=== PATIENT | male | born 1995 | race Hispanic/Latino ===

== ENCOUNTER 2022-05-27 06:29 | Day surgery (SDC) | payer BC ==
[2022-05-26 11:05] VITALS: BMI 26.6
[2022-05-27] MEDS ORDERED: Oxymetazoline HCl 0.05% (30 ML BOT) ONE ×2 (06:45→07:09)
[2022-05-27] MEDS ORDERED: Bupivacaine/Epinephrine 0.25% 30 ML VIAL ONE (06:45)
[2022-05-27] MEDS ORDERED: Bacitracin Zinc Ointment 30 gm TUBE ONE (06:45)
[2022-05-27] MEDS ORDERED: fentaNYL Citrate/PF 100 MCG/2 ML SYRINGE ONE (06:49)
[2022-05-27] MEDS ORDERED: Dexmedetomidine 200 MCG/2 ML VIAL ONE (06:49)
[2022-05-27] MEDS ORDERED: CEFAZOLIN 2 GM VIAL ONE (07:17)
[2022-05-27] MEDS ORDERED: Sodium Chloride 0.9% 100 ML ONE (07:17)
[2022-05-27] MEDS ORDERED: EPINEPHrine 1 MG/ML AMP ONE (07:27)
[2022-05-27] MEDS ORDERED: Lidocaine 1% (PF) 30 ML VIAL ONE (07:27)
[2022-05-27] MEDS ORDERED: Ondansetron PF 4 MG/2 ML Vial ONE (07:33)
[2022-05-27] MEDS ORDERED: Lidocaine 1% MPF 2 ML VIAL ONE (07:33)
[2022-05-27] MEDS ORDERED: NEOSTIGMINE 3 MG/3 ML SYR 3 MG/3 ML SYRINGE ONE (07:33)
[2022-05-27] MEDS ORDERED: Rocuronium Bromide 10 MG/ML (10ML VIAL) ONE (07:33)
[2022-05-27] MEDS ORDERED: Glycopyrrolate 0.2 MG/ML 5 ML SYRINGE ONE (07:33)
[2022-05-27] MEDS ORDERED: Dexamethasone 20 MG/5 ML VIAL ONE (07:33)
[2022-05-27] MEDS ORDERED: diphenhydrAMINE 50 MG/ML VIAL ONE (07:33)
[2022-05-27] MEDS ORDERED: PROPOFOL 200 MG/20 ML VIAL ONE (07:33)
[2022-05-27] MEDS ORDERED: Fentanyl 100 MCG/2 ML VIAL ONE ×3 (10:32→11:47)
[2022-05-27] MEDS ORDERED: Hydrocodone-Acetamin 15 ML UDCUP ONE (12:36)
== END 2022-05-27 13:20 | disposition home or self-care (01) ==
LOC: SDC 06:29
PROVIDERS: ATTEND Student in an Organized Health Care Education/Training Program
PROC: 09TL0ZZ Resection of Nasal Turbinate, Open Approach (ICD-10-PCS; principal; 2022-05-27)
PROC: 09SM0ZZ Reposition Nasal Septum, Open Approach (ICD-10-PCS; principal; 2022-05-27)
PROC: 0CTPXZZ Resection of Tonsils, External Approach (ICD-10-PCS; principal; 2022-05-27)
PROC: 09QK0ZZ Repair Nasal Mucosa and Soft Tissue, Open Approach (ICD-10-PCS; principal; 2022-05-27)
DX: J03.91 Acute recurrent tonsillitis, unspecified (principal); J35.01 Chronic tonsillitis; J34.2 Deviated nasal septum; J34.3 Hypertrophy of nasal turbinates; J34.89 Other specified disorders of nose and nasal sinuses; G47.30 Sleep apnea, unspecified; J30.9 Allergic rhinitis, unspecified
CPT/HCPCS: 88304; C1889; J0171; J0690; J1100; J1200; J2001; J2405; J2704; J3010; J3490